=== PATIENT | female | born 1985 | race African-American/Black ===

== ENCOUNTER 2024-11-06 18:27 | Emergency (ER) | payer SELFPAY ==
[~2024-11-06] VITALS: Ht 162.6 cm; Wt 77.1 kg
[2024-11-06 18:37] VITALS: O2SAT 99
[2024-11-06] MEDS ORDERED: CYCLOBENZAPRINE 10MG TABLET PO ONE (21:00)
[2024-11-06 21:53] VITALS: BP 135/86; PULSE 91; RESP 16; TEMP 36.7; O2SAT 99
== END 2024-11-06 21:54 | disposition home or self-care (01) ==
LOC: ER 18:27
DX: M54.6 Pain in thoracic spine (principal)
CPT/HCPCS: 99281